=== PATIENT | female | born 1985 ===

== ENCOUNTER 2017-07-18 16:18 | Emergency (ER) | payer MEDICAID, OTHER ==
[2017-07-18 16:38] VITALS: BP 140/73; PULSE 82; RESP 18; TEMP 97.8; O2SAT 99
--- NOTE | 2017-07-18 17:03 | ED PDOC ---
HPI: Skin/Bite Injury Time Seen by Provider: 07/18/17 16:37 Chief Complaint (Nursing): Abnormal Skin Integrity Chief Complaint (Provider): Abnormal Skin Integrity History Per: Patient History/Exam Limitations: no limitations Onset/Duration Of Symptoms: Days (x 1 month) Current Symptoms Are (Timing): Still Present Additional Complaint(s): Noa is a 32 y/o female who presents to the ED for evaluation of erythema/ rash to the right upper arm, onset 1 month ago. She states that it has grown larger over the past month, and she has been scratching the area. Now patient believes the area is infected. PMD: Provider TBD Past Medical History Reviewed: Historical Data, Nursing Documentation, Vital Signs Vital Signs: Last Vital Signs Temp 97.8 F 07/18/17 16:35 Pulse 82 07/18/17 16:35 Resp 18 07/18/17 16:35 BP 140/73 07/18/17 16:35 Pulse Ox 99 07/18/17 17:03 - Medical History PMH: No Chronic Diseases - Family History Family History: States: Unknown Family Hx - Social History Current smoker - smoking cessation education provided: No Alcohol: None Drugs: Denies - Allergies Allergies/Adverse Reactions: Allergies Allergy/AdvReac Type Severity Reaction Status Date / Time No Known Allergies Allergy Verified 07/18/17 16:34 Review of Systems ROS Statement: Except As Marked, All Systems Reviewed And Found Negative Skin: Positive for: Lesions (to the right upper arm) Physical Exam - Reviewed Nursing Documentation Reviewed: Yes Vital Signs Reviewed: Yes - Physical Exam Appears: Positive for: Well, Non-toxic, No Acute Distress Head Exam: Positive for: ATRAUMATIC, NORMAL INSPECTION, NORMOCEPHALIC Skin: Positive for: Warm, Dry Eye Exam: Positive for: Normal appearance Neck: Positive for: Normal Respiratory: Negative for: Respiratory Distress Neurologic/Psych: Positive for: Alert, Oriented - ECG O2 Sat by Pulse Oximetry: 99 Disposition - Disposition Forms: [employer] (Greenlandic)
--- NOTE | 2017-07-18 17:05 | ED PDOC ---
HPI: Skin/Bite Injury Time Seen by Provider: 07/18/17 16:37 Chief Complaint (Nursing): Abnormal Skin Integrity Chief Complaint (Provider): Itchy rash, right upper lateral arm History Per: Patient History/Exam Limitations: no limitations Onset/Duration Of Symptoms: Days (1 month ) Current Symptoms Are (Timing): Still Present Quality Of Symptoms: Itching Severity: Mild Additional Complaint(s): Pt states it started 1 month ago with a small ball and has been getting worse. Pt denies trauma. No medical history. Past Medical History Vital Signs: Last Vital Signs Temp 97.8 F 07/18/17 16:35 Pulse 82 07/18/17 16:35 Resp 18 07/18/17 16:35 BP 140/73 07/18/17 16:35 Pulse Ox 99 07/18/17 17:03 - Medical History PMH: No Chronic Diseases - Family History Family History: States: Unknown Family Hx - Social History Current smoker - smoking cessation education provided: No Alcohol: None Drugs: Denies - Home Medications Home Medications: Ambulatory Orders Medication Instructions Recorded Bacitracin Ointment [Bacitracin] 30 gm TOP BID #1 tube 07/18/17 Sulfamethoxazole/Trimethoprim 1 each PO BID #20 tablet 07/18/17 [Bactrim 400-80 mg Tablet] - Allergies Allergies/Adverse Reactions: Allergies Allergy/AdvReac Type Severity Reaction Status Date / Time No Known Allergies Allergy Verified 07/18/17 16:34 Physical Exam - Reviewed Nursing Documentation Reviewed: Yes Vital Signs Reviewed: Yes - Physical Exam Appears: Positive for: Well, Non-toxic, No Acute Distress Head Exam: Positive for: ATRAUMATIC, NORMAL INSPECTION, NORMOCEPHALIC Skin: Positive for: Warm, Rash ((+) lesion on the right upper arm, approx 3 cm in diameter, round with granulated tissue at the base, edges smooth and raised ) . Negative for: Normal Color Eye Exam: Positive for: Normal appearance ENT: Positive for: Normal ENT Inspection Neck: Positive for: Normal, Painless ROM Respiratory: Negative for: Accessory Muscle Use, Respiratory Distress Back: Positive for: Normal Inspection Extremity: Positive for: Normal ROM Neurologic/Psych: Positive for: Alert, Oriented - ECG O2 Sat by Pulse Oximetry: 99 Medical Decision Making Medical Decision Making: Discussed followup with dermatology for possible CA and biopsy. Disposition - Clinical Impression Clinical Impression: Skin lesion Counseled Patient/Family Regarding: Diagnosis, Need For Followup, Rx Given - Disposition Referrals: [facility] [Outside] Disposition: Routine/Home Disposition Time: 17:27 Condition: GOOD Additional Instructions: Please follow-up with rn recovery for further evaluation of abnormal skin lesion. Prescriptions: Bacitracin Ointment [Bacitracin] 30 gm TOP BID #1 tube Sulfamethoxazole/Trimethoprim [Bactrim 400-80 mg Tablet] 1 each PO BID #20 tablet Instructions: Excision of Skin Lesion (GEN) Forms: [employer] (Turkish)
== END 2017-07-18 17:47 | disposition home or self-care (01) ==
LOC: H.ER 16:18
DX: L98.9 Disorder of the skin and subcutaneous tissue, unspecified (principal)